=== PATIENT | male | born 1970 | race Caucasian/White ===

== ENCOUNTER 2020-08-07 15:52 | Emergency (ER) | payer OTHER, SELFPAY ==
[2020-08-07 16:17] VITALS: BP 129/92; PULSE 79; RESP 20; TEMP 36.8; O2SAT 98
--- NOTE | 2020-08-07 17:01 | ED.ANIMALBIT ---
HPI - Animal Bite General Chief Complaint: Animal Bite Stated Complaint: Spider bite right arm Time Seen by Provider: 08/07/20 16:26 Source: patient Mode of arrival: ambulatory Limitations: no limitations History of Present Illness HPI narrative: This is a 50 year old male that presents to the ER for spider bite about an hour prior to arrival. Reports he saw a black spider in his car. Reports the spider bit him on his right arm. Reports since he has had burning pain in the area. Also reports some redness and swelling to the area. Patient reports he is up-to-date on tetanus. Denies fever, shortness of breath, or vomiting. Related Data Allergies Allergy/AdvReac Type Severity Reaction Status Date / Time ketorolac Allergy Intermediate Unknown Verified 08/07/20 16:20 Penicillins Allergy Intermediate Unknown Verified 08/07/20 16:20 Review of Systems Review of Systems: Narrative: CONSTITUTIONAL: Denies fever SKIN: Reports rash and itching. NEUROLOGIC: Denies headache, numbness, or weakness. All systems reviewed & are unremarkable except as noted in HPI and below PMFSH Social History Social History (Updated 08/07/20 @ 17:04 by Madina Hodgson PA-C) Smoking status: Current every day smoker Substance use: current Substance use type: marijuana Exam Narrative: Exam Narrative: GENERAL: Well-appearing, well-nourished, and in no acute distress. HEAD: Normocephalic, atraumatic. EYES: EOMI. CHEST: Airway patent HEART: Regular rate EXTREMITIES: Normal range of motion. No edema. SKIN: Warm, dry. Right elbow with area of blanching with mild surrounding redness NEURO: No focal deficits. Alert and oriented x3. PSYCH: Normal mood and affect Course Vital Signs Vital signs: Vital Signs Temperature 98.2 F 08/07/20 16:17 Pulse Rate 79 08/07/20 16:17 Respiratory Rate 20 08/07/20 16:17 Blood Pressure 129/92 H 08/07/20 16:17 Pulse Oximetry 98 08/07/20 16:17 Temperature 98.2 F 08/07/20 16:17 Pulse Rate 79 08/07/20 16:17 Respiratory Rate 20 08/07/20 16:17 Blood Pressure 129/92 H 08/07/20 16:17 Pulse Oximetry 98 08/07/20 16:17 MDM - Animal Bite MDM Narrative Medical decision making narrative: Patient presents to the emergency department for a spider bite today. Mild redness surrounding the area which is painful. He is afebrile. Vital signs are normal, other than mildly elevated blood pressure to 129/92. He is up-to-date on tetanus. Was instructed on local wound care. He is to follow-up with primary care doctor. He was given warnings to return to the ER Critical Care Time Critical Care Time Critical Care Time: No Discharge Plan Discharge Clinical Impression: Accidental spider bite Patient Disposition: Home, Self-Care Condition: Stable Instructions: Black Spider Bite (ED) Additional Instructions: Return to the emergency department if you experience fever, increasing redness and swelling of your arm, abnormal drainage from the wound, or any other symptoms that are concerning to you Keep the area clean with mild soap and water. [id number] pain medication as needed. Muscle relaxer as needed for pain. This medication can make you drowsy, do not drive if you are going to take it Follow up with your primary care doctor Prescriptions: New cyclobenzaprine 10 mg tablet 10 mg PO TID PRN (Reason: muscle spasm) Qty: 10 RF: 0 Follow-up/Referrals: Alexandro Velasquez MD [Physician] - 3 Days PHYSICIAN,[employer] INSPECTOR [Primary Care Provider] -
[2020-08-07] MEDS: ACETAMINOPHEN 500 MG TABLET 1000 MG PO (17:06)
[2020-08-07 17:40] VITALS: BP 128/88; PULSE 72; RESP 20; O2SAT 99
== END 2020-08-07 17:43 | disposition home or self-care (01) ==
PROVIDERS: Emergency Provider Emergency Medicine
DX: T63.301A Toxic effect of unspecified spider venom, accidental (unintentional), initial encounter (principal); F17.200 Nicotine dependence, unspecified, uncomplicated
CPT/HCPCS: 99283; A9270

== ENCOUNTER 2022-02-15 15:12 | Emergency (ER) | payer OTHER, SELFPAY ==
[2022-02-15] VITALS (7 sets, daily range): BP systolic 112–161; BP diastolic 78–109; PULSE 54–78; RESP 16–20; TEMP 36.4; O2SAT 96–100
--- NOTE | ~2022-02-15 | CT_ITS ---
EXAMINATION: CT brain wo con DATE: 02/15/2022 17:37 INDICATION: R arm numbness, visual changes . TECHNIQUE: Computed tomography (CT) of the head was performed without intravenous contrast. The mA wa s adjusted according to patient size. Iterative reconstruction technique was employed. The dose-lengt h product was 605.33 mGy-cm. COMPARISON: 07/26/2018 FINDINGS: No acute intracranial hemorrhage or extra-axial fluid collection. No hydrocephalus, mass, or herniation. No acute ischemic infarct. Unremarkable dural venous sinus attenuation. No acute osseous abnormality. The aerated spaces are clear. Mild atrophy and chronic white matter change. IMPRESSION: No acute intracranial process. Reviewed, dictated and finalized at location [facility].
--- NOTE | ~2022-02-15 | CT_ITS ---
EXAMINATION: CT cervical spine wo con DATE: 02/15/2022 17:37 INDICATION: midline tenderness TECHNIQUE: Computed tomography (CT) of the cervical spine was performed without intravenous contrast. Automated exposure control and iterative reconstruction technique were employed. The dose-length pro duct was 250.90 mGy-cm. COMPARISON: 07/26/2018. FINDINGS: Counting reference: Craniocervical junction. There are seven cervical type vertebral bodies. Anatomic Variants: None.. Vertebral Body Alignment: Intact. Craniocervical junction: Mild degenerative change. Alignment intact. Osseous structures/fracture: Multiple circumscribed round small lytic lesions, with groundglass or calcified matrix, no cortical breakthrough or periosteal change, several of which are stable since 2 018, multiple additional are visible in today's study that were out of the [id number] in the prior . These nonaggressive appearing lesions are unlikely to represent metastases (the most common lytic b one lesion in this age group) given the long-term stability. No evidence of acute fracture. Cervical soft tissues: The paraspinal soft tissues planes are maintained. Degenerative changes: No significant degenerative changes. IMPRESSION: No acute fracture or traumatic malalignment in the cervical spine. Multiple nonaggressive appearing l ytic lesions, may represent brown tumors, correlate with history of hyperparathyroidism and chronic r enal disease. Reviewed, dictated and finalized at location K. IMPRESSION: No acute fracture or traumatic malalignment in the cervical spine. Multiple non aggressive appearing lytic lesions, may represent brown tumors, correlate with history of hyperparathyroidism and chronic renal disease.
--- NOTE | 2022-02-15 15:21 | ECG_ITS ---
Measurements Intervals [place] Rate: 68 P: 62 MS: 144 QRS: 15 QRSD: 106 T: 46 QT: 388 QTc: 413 Interpretive Statements SINUS RHYTHM MINIMAL Q WAVES- HIGH LATERAL LEADS BORDERLINE ECG Electronically Signed On 02-15-2022 16:20:47 CDT by Ag Gates D.O.
--- NOTE | 2022-02-15 17:06 | ED.GENADULT ---
HPI - General Adult General Chief complaint: Weakness Stated complaint: left arm pain Time Seen by Provider: 02/15/22 16:51 History of Present Illness HPI narrative: Patient is a 51-year-old male with a history of IVDU, lumbar radiculopathy here for evaluation of right arm weakness today. Patient states that he woke up around 3:00 in the morning and noted that his right arm was numb. He states that arm is still numb and he is having difficulty using it, and also reports intermittent shooting pain from his neck to his R hand. He notes the pain is positional and is most severe with right arm flexion. Denies history of previous. He has not tried any medications for his pain. Also reports several episodes of urinary incontinence and numbness and tingling in his groin region. Additionally states that he is having double vision, which he attributes to anxiety. Denies headache, abdominal pain, fevers today, chills. He does note that he has a history of lumbar radiculopathy, previously saw a surgeon at [facility], but ultimately decided against surgery. Related Data Home Medications Medication Instructions Recorded Confirmed No Home Medications 02/15/22 02/15/22 Allergies Allergy/AdvReac Type Severity Reaction Status Date / Time ketorolac Allergy Intermediate Unknown Verified 02/15/22 17:03 Penicillins Allergy Intermediate Unknown Verified 02/15/22 17:03 Review of Systems Review of Systems: Gen: Denies fevers or chills Eyes: Denies eye pain or visual change ENT: Denies congestion Respiratory: Denies shortness of breath or cough CV: Denies chest pain or palpitations GI: Denies abdominal pain nausea, emesis or diarrhea denies burning, urgency, frequency or hematuria Musculoskeletal: Reports right arm pain. Neuro: Denies numbness, tingling, weakness or focal weakness Skin: Denies rash Except as documented, all other systems reviewed and negative All systems reviewed & are unremarkable except as noted in HPI and below [facility] Social History Social History (Updated 08/07/20 @ 17:04 by Madina Hodgson PA-C) Smoking status: Current every day smoker Substance use: current Substance use type: marijuana Exam Narrative: APPEARANCE: No acute distress, nontoxic, resting in bed HEENT: Normocephalic, atraumatic, OMM, TMs clear bilaterally. notes decreased hearing on the right. EYES: PERRL, EOMI. NECK: Supple, nontender, full range of motion without pain, no meningismus RESPIRATORY: No respiratory distress, clear to auscultation bilaterally with no rhonchi wheezing or rales CARDIOVASCULAR: 2+ radial pulses bilaterally. Regular rate and rhythm. ABDOMINAL: Soft, nontender, nondistended MUSCULOSKELETAL: Spurling's test positive on the right. Midline tenderness along C-spine. NEURO: Strength in the right arm is diminished compared to left. Notes pain with active flexion of right arm. A and O ?3, following commands, speech normal, cranial nerves II through XII grossly intact. SKIN: Warm, dry. Normal Color PSYCHIATRIC: Normal affect/mood Course Consultations Consultation #1: Spoke with Dr. Guzman, neurosurgery at [place]. He does not feel transfer is necessary and will not accept patient without an MRI. Discussed with physician that we do not have access to emergent MRI in the ED, however he has low suspicion for spinal compression syndrome based off of patient's history. Recommended outpatient follow-up. Consultation #2: Discussed case with Dr. Ridley, ortho data warehouse specialist at [facility]. Agrees that patient history is concerning, she recommended obtaining an ESR and CRP. She states as long as the ESR and CRP are negative, she has low suspicion for epidural abscess and his symptoms are likely due to cervical radiculopathy. Patient's ESR and CRP are negative, so we will arrange for outpatient follow-up with [facility] spine clinic this week. Vital Signs Vital signs: Vital Signs Temperature 97.5 F L 02/15/22 15:15 Pulse Rate 78 0
--- NOTE | 2022-02-15 19:05 | PC.NURSE ---
Report given to PRASHANTH Acosta
[2022-02-15 19:56] LABS: Basophils Percent Auto 0.4 % (0.2-1.2); Eosinophils Absolute Auto 0.2 K/mm3 (0-0.3); Eosinophils Percent Auto 3.9 % (0-4.4); Hematocrit 39.4 % (42.0-52.0); Hemoglobin 12.9 g/dL (14.0-18.0); Immature Granulocyte Absolute 0.01 K/mm3 (0.00-0.031); Immature Granulocyte Percent A 0.2 % (0-0.5); Lymphocytes Absolute Auto 1.86 K/mm3 (0.9-3.2); Mean Corpuscular HGB Conc 32.7 g/dl (32-36); Mean Corpuscular Hemoglobin 29.3 pg (26-34); Mean Corpuscular Volume 89.5 fl (80-100); Mean Platelet Volume 9.2 fl (7.4-10.4); Monocytes Absolute Auto 0.3 K/mm3 (0.1-0.6); Monocytes Percent Auto 7.3 % (2.6-8.5); Neutrophils Absolute Auto 2.2 K/mm3 (1.3-6.7); Neutrophils Percent Auto 48.2 % (45.5-73.1); Platelet Count Result 258 k/mm3 (150-375); Red Cell Distribution Width 12.3 % (11.5-14.5); White Blood Count 4.7 K/mm3 (4.5-10.0)
[2022-02-15 20:08] LABS: Alanine Aminotransferase 32 U/L (6-50); Albumin Level 3.7 g/dL (3.5-5.1); Alkaline Phosphatase 97 U/L (38-126); Anion Gap 2 mmol/L (8-16); Aspartate Amino Transferase 31 U/L (17-59); Bilirubin,Total 0.3 mg/dL (0.2-1.3); Blood Urea Nitrogen 17 mg/dL (9-20); Calcium 8.4 mg/dL (8.4-10.2); Carbon Dioxide 28 mmol/L (22-30); Chloride 105 mmol/L (98-107); Estimated CRCL calculation 103 ml/min; Estimated Glomerular Filt Rate > 60; Glucose 90 mg/dL (65-110); Potassium 3.8 mmol/L (3.4-5.0); Sodium 135 mmol/L (137-145)
[2022-02-15 20:16] LABS: SARS-CoV-2 RNA PCR Negative
--- NOTE | 2022-02-15 23:30 | PC.NURSE ---
Assuming care of pt.
[2022-02-16 01:35] VITALS: BP 112/87; PULSE 58; RESP 16; O2SAT 96
[2022-02-16 02:00] LABS: CRP < 0.5 mg/dL (<1.0)
[2022-02-16 03:00] LABS: Erythrocyte Sedimentation Rate 18 mm/hr (0-20)
[2022-02-16 03:04] VITALS: BP 110/78; PULSE 63; RESP 18; O2SAT 97
== END 2022-02-16 03:32 | disposition home or self-care (01) ==
PROVIDERS: Physician Assistant; Emergency Provider Emergency Medicine
DX: M54.12 Radiculopathy, cervical region (principal); Z20.822 Contact with and (suspected) exposure to COVID-19; F17.200 Nicotine dependence, unspecified, uncomplicated; R94.31 Abnormal electrocardiogram [ECG] [EKG]
CPT/HCPCS: 36415; 70450; 72125; 80053; 85025; 85652; 86140; 87040; 93005; 99284; C9803; U0003; U0005